=== PATIENT | female | born 1995 | race African-American/Black ===

== ENCOUNTER 2023-03-26 12:16 | Emergency (ER) | payer MEDICAID ==
[~2023-03-26] VITALS: Ht 160 cm; Wt 59.0 kg
[2023-03-26 12:27] VITALS: O2SAT 99
[2023-03-26] MEDS ORDERED: KETOROLAC 60MG/2ML VIAL IM ONE (13:15)
[2023-03-26] MEDS ORDERED: CYCLOBENZAPRINE 10MG TABLET PO ONE (13:15)
[2023-03-26] MEDS ORDERED: NAPR500T7 MT ×2 (13:19)
[2023-03-26] MEDS ORDERED: CYCL5TAB MT (13:19)
[2023-03-26 14:01] VITALS: BP 123/79; PULSE 64; RESP 20; TEMP 98.2
[2023-03-26] MEDS ORDERED: NAPR-681 MT (15:41)
== END 2023-03-26 14:04 | disposition home or self-care (01) ==
LOC: ER 12:58
DX: G57.02 Lesion of sciatic nerve, left lower limb (principal); Z98.890 Other specified postprocedural states
CPT/HCPCS: 99283; 81025; 96372; J1885

== ENCOUNTER 2023-05-08 23:37 | Emergency (ER) | payer MEDICAID ==
[~2023-05-08] VITALS: Ht 160 cm; Wt 67.0 kg
[~2023-05-08 23:37] MED LIST: CYCL5TAB MT; NAPR-681 MT
[2023-05-08 23:54] VITALS: O2SAT 98
[2023-05-09] MEDS ORDERED: IBUP-2029 MT (00:51)
[2023-05-09] MEDS: IBUPROFEN 600MG TABLET PO ONE (01:02)
[2023-05-09 01:04] VITALS: BP 117/64; PULSE 66; RESP 18; TEMP 97.9
== END 2023-05-09 01:30 | disposition home or self-care (01) ==
LOC: ER 23:37
DX: S92.354A Nondisplaced fracture of fifth metatarsal bone, right foot, initial encounter for closed fracture (principal); X58.XXXA Exposure to other specified factors, initial encounter; Y93.89 Activity, other specified; Y92.89 Other specified places as the place of occurrence of the external cause; Y99.8 Other external cause status
CPT/HCPCS: 29515; 99284; 73610; 73630; Z7610

== ENCOUNTER 2023-06-12 06:21 | Emergency (ER) | payer MEDICAID ==
[~2023-06-12] VITALS: Ht 160 cm; Wt 59.0 kg
[~2023-06-12 06:21] MED LIST changes: +IBUP-2029 MT
[2023-06-12 06:35] VITALS: O2SAT 98
[2023-06-12] MEDS: MAGNESIUM/ALUMINUM HYDROXIDE/SIMETHICONE 30ML UDC PO STA (07:20)
[2023-06-12] MEDS: ONDANSETRON 4MG ODT PO STA (07:20)
[2023-06-12] MEDS: FAMOTIDINE 20MG TABLET PO ONE (07:20)
[2023-06-12 08:22] LABS: CLARITY URINE CLEAR (CLEAR); COLOR URINE DARK YELLOW (YELLOW); GLUCOSE URINE NEGATIVE (NEGATIVE); KETONES URINE TRACE (NEGATIVE); LEUKOCYTE ESTERASE URINE TRACE (NEGATIVE); NITRITE URINE NEGATIVE (NEGATIVE); OCCULT BLOOD URINE NEGATIVE (NEGATIVE); PH URINE 6.5 (4.5-8.0); PROTEIN URINE NEGATIVE (NEGATIVE); SPECIFIC GRAVITY URINE 1.014 (1.005-1.030)
[2023-06-12 08:22] LABS: HCG SCREEN NEGATIVE
[2023-06-12 08:34] LABS: RBC URINE 0-2 /hpf (0-2); SQUAMOUS EPITHELIAL CELL URINE 1+ /lpf (RARE/1+); WBC URINE 0-2 /hpf (0-2)
[2023-06-12 08:36] LABS: BACTERIA URINE FEW
[2023-06-12 08:42] LABS: HEMATOCRIT. 37.8 % (36.0-48.0); MEAN CORPUSCULAR HEMOGLOBIN 30.8 pg (28.0-32.0); MEAN CORPUSCULAR HGB CONC 34.3 g/dL (31.0-37.0); MEAN CORPUSCULAR VOLUME 89.7 fL (81.0-99.0); PLATELET 226 x1000/uL (130-400); RED BLOOD CELL COUNT 4.21 mill/uL (4.2-5.4); RED CELL DISTRIBUTION WIDTH 12.7 % (11.6-14.6); WHITE BLOOD COUNT 10.2 x1000/uL (4.5-11.0)
[2023-06-12 08:49] LABS: DIFFERENTIAL COMMENT 1
[2023-06-12 08:50] LABS: ALANINE AMINOTRANSFERASE 160 IU/L (10-49); ALBUMIN 4.3 g/dL (3.2-4.8); ASPARTATE AMINOTRANSFERASE 52 IU/L (<34); BILIRUBIN TOTAL 3.4 mg/dL (0.1-1.0); CALCIUM 8.5 mg/dL (8.7-10.4); CARBON DIOXIDE 25 mEq/L (21-32); CHLORIDE 104 mEq/L (98-107); CREATININE 0.5 mg/dL (0.6-1.0); GLUCOSE 102 mg/dL (70-105); POTASSIUM 3.1 mEq/L (3.5-5.1); PROTEIN TOTAL 7.6 g/dL (6.0-8.3); SODIUM 137 mEq/L (136-145); UREA NITROGEN BLOOD 5 mg/dL (9-23)
[2023-06-12] MEDS ORDERED: CIPR-263 MT (10:47)
[2023-06-12] MEDS: POTASSIUM CHLORIDE 20MEQ TABLET SR PO ONE (11:01)
[2023-06-12 11:15] VITALS: BP 104/72; PULSE 85; RESP 18; TEMP 98.4
[2023-06-12 12:23] LABS: PLATELET ESTIMATE NORMAL
== END 2023-06-12 11:15 | disposition home or self-care (01) ==
LOC: ER 06:21
DX: N39.0 Urinary tract infection, site not specified (principal)
CPT/HCPCS: 80053; 81003; 81025; 84703; 83690; 85025; 36415; 76705; 99284; Q0162; Z7610 ×2

== ENCOUNTER 2023-06-12 21:21 | Emergency (ER) | payer MEDICAID ==
[~2023-06-12] VITALS: Ht 167.6 cm; Wt 60.0 kg
[~2023-06-12 21:21] MED LIST changes: +CIPR-263 MT
[2023-06-12 21:33] VITALS: BP 120/82; PULSE 92; RESP 16; TEMP 98.4; O2SAT 98
[2023-06-12 22:59] LABS: BASOPHILS % 0.1 % (0.0-2.0); EOSINOPHILS % 0.1 % (0.0-5.0); HEMATOCRIT. 37.5 % (36.0-48.0); HEMOGLOBIN. 12.9 g/dL (12.0-16.0); LYMPHOCYTES % 9.5 % (20.0-50.0); MEAN CORPUSCULAR HGB CONC 34.5 g/dL (31.0-37.0); MEAN CORPUSCULAR VOLUME 90.1 fL (81.0-99.0); MEAN PLATELET VOLUME 8.2 fl (7.4-10.4); MONOCYTES % 14.2 % (2.0-8.0); NEUTROPHILS % 76.1 % (40.0-76.0); PLATELET 272 x1000/uL (130-400); RED BLOOD CELL COUNT 4.17 mill/uL (4.2-5.4); WHITE BLOOD COUNT 13.8 x1000/uL (4.5-11.0)
[2023-06-12 23:13] LABS: HCG SCREEN NEGATIVE
[2023-06-12 23:18] LABS: ALANINE AMINOTRANSFERASE 139 IU/L (10-49); ALBUMIN 4.5 g/dL (3.2-4.8); ASPARTATE AMINOTRANSFERASE 42 IU/L (<34); BILIRUBIN TOTAL 3.8 mg/dL (0.1-1.0); CALCIUM 8.8 mg/dL (8.7-10.4); CARBON DIOXIDE 23 mEq/L (21-32); CHLORIDE 104 mEq/L (98-107); CREATININE 0.6 mg/dL (0.6-1.0); GLUCOSE 136 mg/dL (70-105); POTASSIUM 3.3 mEq/L (3.5-5.1); PROTEIN TOTAL 7.9 g/dL (6.0-8.3); SODIUM 134 mEq/L (136-145)
[2023-06-12 23:19] LABS: UREA NITROGEN BLOOD < 5 mg/dL (9-23)
== END 2023-06-13 00:40 | disposition left against medical advice (07) ==
LOC: ER 21:21
DX: R10.9 Unspecified abdominal pain (principal); Z53.21 Procedure and treatment not carried out due to patient leaving prior to being seen by health care provider
CPT/HCPCS: 36415; 80053; 84703; 85025; 99281